=== PATIENT | male | born 1950 | race Caucasian/White ===

== ENCOUNTER 2024-02-17 10:22 | Outpatient (CLI) | payer MEDICARE | END 2024-02-17 10:23 | disposition home or self-care (01) | LOC: NAV RAD 10:22 | PROVIDERS: ATTEND Nurse Practitioner Family | DX: R05.9 Cough, unspecified (principal); R09.89 Other specified symptoms and signs involving the circulatory and respiratory systems | CPT/HCPCS: 71046 ==

== ENCOUNTER 2024-03-22 12:30 | Emergency (ER) | payer MEDICARE ==
[2024-03-22] MEDS ORDERED: Ipratropium/Albuterol 3 ML NEB ONE (13:11)
[2024-03-22] MEDS ORDERED: Oseltamivir 75 MG CAP ONE (14:16)
== END 2024-03-22 14:29 | disposition home or self-care (01) ==
LOC: NAV ERS 12:30
DX: J10.1 Influenza due to other identified influenza virus with other respiratory manifestations (principal)
CPT/HCPCS: 71046; 87070; 87205; 87428; 94640; J7620

== ENCOUNTER 2024-04-15 11:35 | Outpatient (CLI) | payer OTHER | END 2024-04-15 11:36 | disposition home or self-care (01) | LOC: NAV RAD 11:35 | PROVIDERS: ATTEND Student in an Organized Health Care Education/Training Program | DX: J18.9 Pneumonia, unspecified organism (principal); I51.7 Cardiomegaly | CPT/HCPCS: 71046 ==